=== PATIENT | male | born 1950 ===

== ENCOUNTER → 2020-10-24 | Outpatient (CLI) | payer OTHER | END | disposition home or self-care (01) | LOC: TOM 08:15 | PROVIDERS: ATTEND Surgery | DX: N28.89 Other specified disorders of kidney and ureter (principal); K59.09 Other constipation; K66.0 Peritoneal adhesions (postprocedural) (postinfection) ==

== ENCOUNTER → 2020-10-27 08:00 | Outpatient (CLI) | payer OTHER | END | disposition home or self-care (01) | LOC: LAB 08:00 → ADM 14:30 → AMB-ENDOS 10-30 14:30 → EDSTATUS 10-30 14:30 | PROVIDERS: ATTEND Surgery | DX: K56.50 Intestinal adhesions [bands], unspecified as to partial versus complete obstruction (principal); K59.09 Other constipation; Z20.822 Contact with and (suspected) exposure to COVID-19; Z03.818 Encounter for observation for suspected exposure to other biological agents ruled out ==